=== PATIENT | male | born 1955 | race Caucasian/White ===

== ENCOUNTER 2016-10-13 00:46 | Emergency (ER) | payer OTHER ==
[~2016-10-13 00:46] MED LIST: ATENOLO PO
[2016-10-13 01:34] LABS: BASOPHIL % 0.3 % (0-2); PLATELET COUNT 364 x10^3mcL (130-400)
[2016-10-13 01:36] LABS: RED CELL DISTRIBUTION WIDTH 14.8 % (11.5-14.5)
[2016-10-13 01:45] LABS: CALCIUM 8.4 mg/dL (8.5-10.1); CARBON DIOXIDE 21.9 mmol/L (21-32); CHLORIDE SERUM 113 mmol/L (98-107); CREATININE SERUM 1.5 mg/dL (0.7-1.3); GFR1 51 mL/min; GLUCOSE SERUM 90 mg/dL (74-106); POTASSIUM SERUM 4.1 mmol/L (3.5-5.1); SODIUM SERUM 149 mmol/L (136-145)
[2016-10-13 01:49] LABS: ALKALINE PHOSPHATASE 87 U/L (46-116); ALT/SGPT 101 U/L (16-63); AST/SGOT 99 U/L (15-37); BILIRUBIN TOTAL 0.17 mg/dL (0.20-1.00); TOTAL PROTEIN, SERUM 7.7 g/dL (6.4-8.2)
[2016-10-13 01:50] LABS: ALBUMIN 3.2 g/dL (3.4-5.0)
[2016-10-13 11:12] VITALS: BP 178/103
== END 2016-10-13 11:25 ==
LOC: ED 00:46
PROVIDERS: Emergency Medicine
DX: F10.129 Alcohol abuse with intoxication, unspecified (principal); I10 Essential (primary) hypertension; Z79.899 Other long term (current) drug therapy
CPT/HCPCS: 36415; G0480; J1885